=== PATIENT | female | born 1985 | race Caucasian/White ===

== ENCOUNTER 2017-10-04 13:09 | Inpatient (IN) | payer OTHER ==
[2017-10-04] MEDS: LACTATED RINGER'S 1,000 ML IV ×2 (15:12→17:07)
[2017-10-04] MEDS ORDERED: OXYTOCIN 30 UNITS/LR 500 ML IV ×2 (17:00)
[2017-10-04] MEDS ORDERED: BUTORPHANOL 2 MG INJ IV (17:00)
[2017-10-04] MEDS ORDERED: CARBOPROST 250 MCG INJ IM (17:00)
[2017-10-04] MEDS ORDERED: MISOPROSTOL 200 MCG TAB PR (17:00)
[2017-10-04] MEDS ORDERED: METHYLERGONOVINE 0.2 MG INJ IM (17:00)
[2017-10-04 17:03] LABS: ADD MAN DIFF? NO
[2017-10-04 17:07] LABS: BASOPHIL # 0.1 10^3/ul (0.0-0.1); BASOPHILS % 0.5 % (0.0-2.0); EOSINOPHILS # 0.3 10^3/ul (0.0-0.5); EOSINOPHILS % 3.2 % (0.0-7.0); HEMATOCRIT 36.5 % (37.0-47.0); HEMOGLOBIN 11.9 g/dl (12.0-16.0); LYMPHOCYTES # 2.1 10^3/ul (0.8-2.9); LYMPHOCYTES % 21.6 % (15.0-51.0); MEAN CORPUSCULAR HEMOGLOBIN 28.8 pg (29.0-33.0); MEAN CORPUSCULAR HGB CONC 32.6 g/dl (32.0-37.0); MEAN CORPUSCULAR VOLUME 88.4 fl (82.0-101.0); MEAN PLATELET VOLUME 10.4 fl (7.4-10.4); MONOCYTE # 0.6 10^3/ul (0.3-0.9); MONOCYTES % 5.6 % (0.0-11.0); NEUTROPHIL # 6.7 10^3/ul (1.6-7.5); NEUTROPHILS % 68.6 % (39.0-77.0); PLATELET COUNT 264 10^3/UL (140-415); RED BLOOD COUNT 4.13 10^6/ul (4.20-5.40); RED CELL DISTRIBUTION WIDTH 14.8 % (11.5-14.5)
[2017-10-04 17:07] LABS: WHITE BLOOD COUNT 9.8 10^3/ul (4.8-10.8)
[2017-10-04 17:21] LABS: PARTIAL THROMBOPLASTIN TIME 28.1 Sec (25.0-35.0); PROTIME 13.3 Sec (11.9-14.9)
[2017-10-04 18:02] LABS: HEPATITIS B SURFACE ANTIGEN NEGATIVE (NEGATIVE)
[2017-10-04 20:11] LABS: RAPID PLASMA REAGIN NONREACTIVE (NR)
[2017-10-05] MEDS: LACTATED RINGER'S 1,000 ML IV ×4 (02:14→19:35)
[2017-10-05] MEDS: OXYTOCIN 30 UNITS/LR 500 ML IV (09:51)
[2017-10-05] MEDS ORDERED: FENTAnyl 2MCG/ML-ROPIV 0.2% 100 ML (19:58)
[2017-10-05] MEDS ORDERED: DIPHENHYDRAMINE 50 MG INJ IV (23:30)
[2017-10-05] MEDS ORDERED: NALOXONE (0.4 MG/ML) INJ IV (23:30)
[2017-10-05] MEDS ORDERED: TRIMETHOBENZAMIDE 100 MG/ML VIAL IM (23:30)
[2017-10-06] MEDS: LACTATED RINGER'S 1,000 ML IV ×2 (02:17→10:29)
[2017-10-06] MEDS: FENTAnyl 2MCG/ML-ROPIV 0.2% 100 ML BAG EPI ×2 (03:09→11:39)
[2017-10-06] MEDS: ONDANSETRON 4 MG INJ IV (04:50)
[2017-10-06] MEDS: LIDOCAINE 1% (MPF) 30 ML INJ INJ (12:41)
[2017-10-06] MEDS: OXYTOCIN 30 UNITS/LR 500 ML IV ×2 (12:45→17:14)
[2017-10-06] MEDS: IBUPROFEN 600 MG TAB PO ×3 (13:47→23:28)
[2017-10-06] MEDS ORDERED: LANOLIN 7 GM TUBE TOP (16:00)
[2017-10-06] MEDS ORDERED: OXYCODONE/ASPIRIN (4.88/325) TAB PO ×2 (16:00)
[2017-10-06] MEDS ORDERED: ONDANSETRON 4 MG INJ IV (16:00)
[2017-10-06] MEDS ORDERED: ACETAMINOPHEN 325 MG TAB PO (16:00)
[2017-10-06] MEDS: BENZOCAINE 20% 56 ML SPRAY TOP (16:29)
[2017-10-06] MEDS: DIBUCAINE 1% 30 GM OINT PR (16:30)
[2017-10-06] MEDS: WITCH HAZEL/GLYCERIN PAD PR (16:30)
[2017-10-06] MEDS: SENNA/DOCUSATE NA (8.6MG/50MG) TAB PO (21:00)
[2017-10-07] MEDS: LACTATED RINGER'S 1,000 ML IV ×2 (01:50→21:00)
[2017-10-07] MEDS: IBUPROFEN 600 MG TAB PO ×4 (05:46→23:40)
[2017-10-07] MEDS: SENNA/DOCUSATE NA (8.6MG/50MG) TAB PO ×2 (09:00→21:00)
[2017-10-07 10:57] LABS: ADD MAN DIFF? NO
[2017-10-07 11:06] LABS: BASOPHILS % 0.5 % (0.0-2.0); EOSINOPHILS # 0.2 10^3/ul (0.0-0.5); EOSINOPHILS % 2.9 % (0.0-7.0); HEMOGLOBIN 9.5 g/dl (12.0-16.0); LYMPHOCYTES # 1.9 10^3/ul (0.8-2.9); LYMPHOCYTES % 23.4 % (15.0-51.0); MEAN CORPUSCULAR HEMOGLOBIN 29.4 pg (29.0-33.0); MEAN CORPUSCULAR HGB CONC 32.8 g/dl (32.0-37.0); MEAN CORPUSCULAR VOLUME 89.8 fl (82.0-101.0); MEAN PLATELET VOLUME 10.1 fl (7.4-10.4); MONOCYTE # 0.4 10^3/ul (0.3-0.9); MONOCYTES % 5.4 % (0.0-11.0); NEUTROPHIL # 5.6 10^3/ul (1.6-7.5); NEUTROPHILS % 67.4 % (39.0-77.0); PLATELET COUNT 214 10^3/UL (140-415); RED BLOOD COUNT 3.23 10^6/ul (4.20-5.40); RED CELL DISTRIBUTION WIDTH 15.3 % (11.5-14.5)
[2017-10-07 11:06] LABS: WHITE BLOOD COUNT 8.2 10^3/ul (4.8-10.8)
[2017-10-08] MEDS: HYDROCODONE/APAP (5/325) TAB PO ×3 (02:07→16:16)
[2017-10-08] MEDS: IBUPROFEN 600 MG TAB PO ×3 (05:08→18:00)
[2017-10-08] MEDS: SENNA/DOCUSATE NA (8.6MG/50MG) TAB PO (09:56)
[2017-10-08] MEDS: MEASLES,MUMPS,RUBELLA VACCINE INJ SC* (12:24)
[2017-10-08] MEDS: LACTATED RINGER'S 1,000 ML IV (16:59)
== END 2017-10-08 18:40 | disposition home or self-care (01) | DRG 775 ==
LOC: OBT 13:09 → L-D 10-06 13:24 → PP1 10-06 15:23 → OBT 16:15 → L-D 16:15
PROVIDERS: Obstetrics & Gynecology
PROC: 10E0XZZ Delivery of Products of Conception, External Approach (ICD-10-PCS; principal; 2017-10-05)
PROC: 0HQ9XZZ Repair Perineum Skin, External Approach (ICD-10-PCS; 2017-10-05)
DX: O24.420 Gestational diabetes mellitus in childbirth, diet controlled (principal); O70.0 First degree perineal laceration during delivery; Z37.0 Single live birth; Z3A.40 40 weeks gestation of pregnancy
CPT/HCPCS: 36415; 62319; 76815; 76818; 85025; 85610; 85730; 86592; 86900; 86901; 87340; 93970

== ENCOUNTER 2017-10-15 08:38 | Emergency (ER) | payer OTHER ==
[2017-10-15] MEDS: KETOROLAC 30 MG INJ IM (09:37)
== END 2017-10-15 10:22 | disposition home or self-care (01) ==
LOC: FTE 08:38
DX: M62.838 Other muscle spasm (principal)
CPT/HCPCS: 96372; 99284-25; J1885

== ENCOUNTER 2018-03-29 10:39 | Observation (INO) | payer OTHER ==
[2018-03-29] MEDS: BUPIVACAINE 0.25%/EPI (MDV) 50 ML VIAL INJ
[2018-03-29] MEDS ORDERED: MIDAZOLAM 1 MG/ML 2 ML INJ (12:54)
[2018-03-29] MEDS ORDERED: FENTAnyl 50 MCG/ML VIAL ×2 (12:54→13:59)
[2018-03-29] MEDS ORDERED: LIDOCAINE 2% (SDV) 5 ML INJ (14:01)
[2018-03-29] MEDS ORDERED: PROPOFOL 20 ML (14:01)
[2018-03-29] MEDS ORDERED: CEFAZOLIN 1 GM INJ (14:01)
[2018-03-29] MEDS ORDERED: ONDANSETRON 4 MG INJ (14:03)
[2018-03-29] MEDS ORDERED: MEPERIDINE 25 MG INJ IV (14:30)
[2018-03-29] MEDS ORDERED: ONDANSETRON 4 MG INJ IV (14:30)
[2018-03-29] MEDS ORDERED: DIPHENHYDRAMINE 50 MG INJ IV (14:30)
[2018-03-29] MEDS ORDERED: HYDROmorphONE 1 MG/5 ML IV SYRINGE IV (14:30)
[2018-03-29] MEDS: METOCLOPRAMIDE 10 MG INJ IV (14:35)
[2018-03-29] MEDS: HYDROmorphONE 1 MG/5 ML IV SYRINGE IV (14:35)
[2018-03-29] MEDS: FENTAnyl 50 MCG/ML VIAL IV (14:36)
[2018-03-29] MEDS: BUTORPHANOL 2 MG INJ IV ×2 (15:14→22:03)
[2018-03-29] MEDS: KETOROLAC 30 MG INJ IV (16:20)
[2018-03-30] MEDS: BUTORPHANOL 2 MG INJ IV ×5 (01:52→15:18)
[2018-03-30] MEDS: morphine 2 MG INJ IV (07:10)
[2018-03-30 08:04] LABS: ADD MAN DIFF? NO
[2018-03-30 08:11] LABS: BASOPHILS % 0.3 % (0.0-2.0); EOSINOPHILS # 0.1 10^3/ul (0.0-0.5); EOSINOPHILS % 0.9 % (0.0-7.0); HEMATOCRIT 39.9 % (37.0-47.0); HEMOGLOBIN 13.1 g/dl (12.0-16.0); LYMPHOCYTES # 1.4 10^3/ul (0.8-2.9); LYMPHOCYTES % 14.1 % (15.0-51.0); MEAN CORPUSCULAR HEMOGLOBIN 28.7 pg (29.0-33.0); MEAN CORPUSCULAR HGB CONC 32.8 g/dl (32.0-37.0); MEAN CORPUSCULAR VOLUME 87.3 fl (82.0-101.0); MEAN PLATELET VOLUME 10.6 fl (7.4-10.4); MONOCYTE # 0.7 10^3/ul (0.3-0.9); MONOCYTES % 7.2 % (0.0-11.0); NEUTROPHIL # 7.4 10^3/ul (1.6-7.5); NEUTROPHILS % 77.2 % (39.0-77.0); PLATELET COUNT 315 10^3/UL (140-415); RED BLOOD COUNT 4.57 10^6/ul (4.20-5.40); RED CELL DISTRIBUTION WIDTH 11.9 % (11.5-14.5)
[2018-03-30 08:11] LABS: WHITE BLOOD COUNT 9.6 10^3/ul (4.8-10.8)
[2018-03-30 08:28] LABS: ANION GAP 13 (8-16); BLOOD UREA NITROGEN 11 mg/dl (7-20); CALCIUM 9.3 mg/dl (8.4-10.2); CARBON DIOXIDE 26 mmol/L (21-31); CHLORIDE 105 mmol/L (97-110); CREATININE 0.53 mg/dl (0.44-1.00); GLUCOSE 97 mg/dl (70-220); POTASSIUM 4.3 mmol/L (3.5-5.1); SODIUM 140 mmol/L (135-144)
[2018-03-30 08:38] LABS: TROPONIN-I < 0.010 ng/ml (0.000-0.120)
[2018-03-30] MEDS: OXYCODONE/ACETAMINOPHEN (10/325) TAB PO ×3 (08:40→16:57)
[2018-03-30 15:20] LABS: TROPONIN-I < 0.010 ng/ml (0.000-0.120)
[2018-03-30] MEDS: ONDANSETRON 4 MG INJ IV (23:11)
[2018-03-30] MEDS: NA PHOSPHATE/BIPHOS 133 ML ENEMA PR (23:11)
[2018-03-31] MEDS: OXYCODONE/ACETAMINOPHEN (10/325) TAB PO (10:18)
[2018-03-31] MEDS ORDERED: BUTORPHANOL 2 MG INJ IV (14:30)
[2018-03-31] MEDS ORDERED: OXYCODONE/ACETAMINOPHEN (10/325) TAB PO (14:30)
[2018-03-31] MEDS ORDERED: IBUPROFEN 600 MG TAB PO (18:00)
== END 2018-03-31 11:35 | disposition home or self-care (01) ==
LOC: SDS 10:39 → REC 14:49 → PP2 20:23
PROVIDERS: Obstetrics & Gynecology
DX: Z30.2 Encounter for sterilization (principal); E66.01 Morbid (severe) obesity due to excess calories; Z68.34 Body mass index [BMI] 34.0-34.9, adult
CPT/HCPCS: 58600; 71045; 80048; 84484; 85025; 88302; 93005; G0378

== ENCOUNTER 2018-10-10 08:34 | Emergency (ER) | payer OTHER | END 2018-10-10 09:15 | disposition home or self-care (01) | LOC: FTE 08:34 | DX: J04.0 Acute laryngitis (principal) | CPT/HCPCS: 99283; Z7502 ==

== ENCOUNTER 2018-12-14 08:48 | Emergency (ER) | payer OTHER | END 2018-12-14 10:54 | disposition home or self-care (01) | LOC: FTE 08:48 | DX: H57.89 Other specified disorders of eye and adnexa (principal); R09.89 Other specified symptoms and signs involving the circulatory and respiratory systems | CPT/HCPCS: 99282; Z7502 ==